=== PATIENT | male | born 1965 | race Caucasian/White ===

== ENCOUNTER 2020-05-05 07:34 | Inpatient (IN) | payer MEDICARE, MEDICAID ==
[~2020-05-05] VITALS: Ht 170.2 cm; Wt 64.0 kg
[2020-05-05 08:36] LABS: CHLORIDE 102 mEq/L (98-107)
[2020-05-05 08:43] LABS: BASOPHILS % 0.7 % (0.0-2.0); EOSINOPHILS % 4.3 % (0.0-5.0); HEMATOCRIT. 31.8 % (42.0-52.0); HEMOGLOBIN. 10.9 g/dL (14.0-18.0); LYMPHOCYTES % 9.2 % (20.0-50.0); MEAN CORPUSCULAR HEMOGLOBIN 31.6 pg (28.0-32.0); MEAN CORPUSCULAR VOLUME 92.6 fL (80.0-94.0); MEAN PLATELET VOLUME 10.1 fl (7.4-10.4); NEUTROPHILS % 76.8 % (40.0-76.0); PLATELET 109 x1000/uL (130-400); RED BLOOD CELL COUNT 3.44 mill/uL (4.7-6.1); RED CELL DISTRIBUTION WIDTH 15.7 % (11.6-14.6)
[2020-05-05 09:11] LABS: INR 1.2; PARTIAL THROMBOPLASTIN TIME 28.2 sec (23.4-31.0); PROTHROMBIN TIME 12.7 sec (9.6-11.0)
[2020-05-05] MEDS ORDERED: AMLODIPINE 5MG TABLET PO ONE (09:30)
[2020-05-05] MEDS ORDERED: CARVEDILOL 12.5MG TABLET PO ONE (09:30)
[2020-05-05] MEDS ORDERED: ROPIVACAINE HCL 10MG/ML 20 ML VIAL EPI ONE (12:20)
[2020-05-05] MEDS ORDERED: BACITRACIN 15GM TUBE TOP ONE (12:27)
[2020-05-05] MEDS ORDERED: LIDOCAINE HCL 1% 20ML VIAL (Pyxis) INJ ONE (12:27)
[2020-05-05] MEDS ORDERED: THROMBIN (BOVINE) 5000 UNITS/VIAL TOP ONE ×2 (12:27→14:05)
[2020-05-05] MEDS ORDERED: ONDANSETRON HCL 4MG/2ML INJ ONE (12:28)
[2020-05-05] MEDS ORDERED: GLYCOPYRROLATE 0.2 MG/ML 2ML VIAL ONE (12:28)
[2020-05-05] MEDS ORDERED: PROPOFOL 200MG/20ML VIAL IV ONE (12:28)
[2020-05-05] MEDS ORDERED: SUCCINYLCHOLINE CHLORIDE 200MG/10ML IV ONE (12:28)
[2020-05-05] MEDS ORDERED: BACITRACIN 50,000 UNITS/VIAL ONE (12:28)
[2020-05-05] MEDS ORDERED: BUPIVACAINE HCL/PF 0.5% (5MG/ML) 10ML ONE (12:28)
[2020-05-05] MEDS ORDERED: HEPARIN SODIUM 1,000 UNIT/1ML VIAL IV ONE ×4 (12:28→13:50)
[2020-05-05] MEDS ORDERED: MIDAZOLAM HCL 2 MG/2 ML VIAL ONE (12:28)
[2020-05-05] MEDS ORDERED: FENTANYL CITRATE/PF 50MCG/ML 2ML VIAL ONE (12:28)
[2020-05-05] MEDS ORDERED: NORMAL SALINE 0.9% 10 ML SYR ONE (12:28)
[2020-05-05] MEDS ORDERED: METOCLOPRAMIDE HCL 10MG/2ML VIAL ONE (12:28)
[2020-05-05] MEDS ORDERED: SODIUM CHLORIDE 0.9% 1,000 ML IV ONE (13:02)
[2020-05-05] MEDS ORDERED: ALBUMIN HUMAN 12.5G/250ML (5%) IV ONE (13:06)
[2020-05-05] MEDS ORDERED: ONDANSETRON HCL 4MG/2ML INJ IV PRN ×3 (13:15→16:15)
[2020-05-05] MEDS ORDERED: MEPERIDINE HCL/PF 25MG/ML CPJ IV PRN (13:15)
[2020-05-05] MEDS ORDERED: MORPHINE SULFATE 2 MG/ML CPJ (NOT FOR IM USE) IV PRN ×2 (13:15→16:15)
[2020-05-05] MEDS ORDERED: HYDROMORPHONE HCL/PF 2MG/ML CPJ IV PRN ×2 (13:15→16:15)
[2020-05-05] MEDS ORDERED: SKIN ADHESIVE 0.7 GM EA TOP ONE (14:13)
[2020-05-05] MEDS ORDERED: HYDROCODONE/ACETAMINOPHEN 5/325MG TABLET PO PRN (15:45)
[2020-05-05] MEDS ORDERED: LORAZEPAM 0.5MG TABLET PO PRN (15:45)
[2020-05-05] MEDS ORDERED: ACETAMINOPHEN 325MG TABLET PO PRN (15:45)
[2020-05-05] MEDS ORDERED: DOCUSATE SODIUM 100MG CAPSULE PO PRN (15:45)
[2020-05-05] MEDS ORDERED: GUAIFENESIN 200MG/10ML SUGAR FREE UDC PO PRN (15:45)
[2020-05-05] MEDS ORDERED: IPRATROPIUM/ALBUTEROL 0.5-3(2.5)MG/3ML NEB HHN PRN (15:45)
[2020-05-05] MEDS ORDERED: CLONIDINE 0.1MG TABLET PO PRN ×2 (15:45→23:15)
[2020-05-05 16:00] VITALS: BP 133/71
[2020-05-05 18:01] VITALS: BP 108/66
[2020-05-05 20:00] VITALS: BP 160/58
[2020-05-05] MEDS ORDERED: ASCO500C18 PO (20:11)
[2020-05-05] MEDS ORDERED: CLON0.1T PO (20:11)
[2020-05-05] MEDS ORDERED: CARV12.545 PO (20:11)
[2020-05-05] MEDS ORDERED: SEVE800T8 PO (20:11)
[2020-05-05] MEDS ORDERED: FOLI0.8T23 PO (20:11)
[2020-05-05] MEDS ORDERED: OMEP20TA2 PO (20:11)
[2020-05-05] MEDS ORDERED: AMLO5TAB88 PO (20:11)
[2020-05-05] MEDS ORDERED: GABA-529 PO (20:11)
[2020-05-05] MEDS ORDERED: CLON1PAT12 TD (20:11)
[2020-05-05] MEDS ORDERED: CLOP75TA33 PO (20:11)
[2020-05-05] MEDS ORDERED: MORP30TA66 PO (20:11)
[2020-05-05] MEDS ORDERED: DOCU-138 PO (20:11)
[2020-05-05] MEDS ORDERED: OXYC-100 PO (20:11)
[2020-05-05 22:00] VITALS: BP 140/45
[2020-05-06] VITALS: BP 148/40
[2020-05-06 04:00] VITALS: BP 150/53
[2020-05-06 07:51] LABS: BASOPHILS % 0.9 % (0.0-2.0); EOSINOPHILS % 2.8 % (0.0-5.0); HEMATOCRIT. 26.8 % (42.0-52.0); HEMOGLOBIN. 9.2 g/dL (14.0-18.0); LYMPHOCYTES % 7.9 % (20.0-50.0); MEAN CORPUSCULAR HEMOGLOBIN 31.3 pg (28.0-32.0); MEAN CORPUSCULAR VOLUME 91.5 fL (80.0-94.0); MEAN PLATELET VOLUME 9.9 fl (7.4-10.4); MONOCYTES % 7.7 % (2.0-8.0); NEUTROPHILS % 80.7 % (40.0-76.0); PLATELET 103 x1000/uL (130-400); RED BLOOD CELL COUNT 2.93 mill/uL (4.7-6.1); RED CELL DISTRIBUTION WIDTH 15.6 % (11.6-14.6)
[2020-05-06 08:00] VITALS: BP 124/69
[2020-05-06] MEDS ORDERED: ENOXAPARIN 40MG/0.4ML SYR SUBCUT SCH (09:00)
[2020-05-06 12:00] VITALS: BP 118/63
[2020-05-06] MEDS ORDERED: ONDANSETRON HCL 4MG/2ML INJ IV PRN (12:45)
[2020-05-06] MEDS ORDERED: GUAIFENESIN 200MG/10ML SUGAR FREE UDC PO PRN (13:00)
[2020-05-06] MEDS ORDERED: DOCUSATE SODIUM 100MG CAPSULE PO PRN (13:00)
[2020-05-06] MEDS ORDERED: ACETAMINOPHEN 325MG TABLET PO PRN (13:00)
[2020-05-06] MEDS ORDERED: CLONIDINE 0.1MG TABLET PO PRN (13:00)
[2020-05-06] MEDS ORDERED: IPRATROPIUM/ALBUTEROL 0.5-3(2.5)MG/3ML NEB HHN PRN (13:00)
[2020-05-06] MEDS ORDERED: LORAZEPAM 0.5MG TABLET PO PRN (13:00)
[2020-05-06] MEDS: HYDROCODONE/ACETAMINOPHEN 5/325MG TABLET PO PRN (13:37)
[2020-05-06 16:00] VITALS: BP 155/66
[2020-05-06] MEDS ORDERED: DEXTROSE 50% WATER 50ML SYRINGE IV PRN (16:15)
[2020-05-06] MEDS: INSULIN LISPRO 100 UNITS/ML SUBCUT SCH ×2 (17:40→21:00)
[2020-05-06] MEDS: CLONIDINE 0.1MG TABLET PO SCH (17:46)
[2020-05-06] MEDS: GABAPENTIN 100MG CAPSULE PO SCH (17:46)
[2020-05-06] MEDS: FOLIC ACID/VITAMIN B COMP W-C TABLET PO SCH (17:46)
[2020-05-06] MEDS: AMLODIPINE 5MG TABLET PO SCH (17:47)
[2020-05-06] MEDS: BLOOD SUGAR DIAGNOSTIC STRIP TEST SCH ×2 (17:47→21:17)
[2020-05-06 20:00] VITALS: BP 165/82
[2020-05-06] MEDS: CARVEDILOL 12.5MG TABLET PO SCH (20:45)
[2020-05-07] VITALS: BP 155/66
[2020-05-07] MEDS: HYDROCODONE/ACETAMINOPHEN 5/325MG TABLET PO PRN (00:24)
[2020-05-07 04:00] VITALS: BP 149/66
[2020-05-07] MEDS: OMEPRAZOLE 20MG CAPSULE EXTENDED RELEASE PO SCH (06:22)
[2020-05-07] MEDS: BLOOD SUGAR DIAGNOSTIC STRIP TEST SCH ×4 (06:22→21:00)
[2020-05-07] MEDS: INSULIN LISPRO 100 UNITS/ML SUBCUT SCH ×4 (06:22→21:00)
[2020-05-07 06:45] LABS: HEMATOCRIT. 25.7 % (42.0-52.0); HEMOGLOBIN. 8.8 g/dL (14.0-18.0); MEAN CORPUSCULAR HEMOGLOBIN 31.4 pg (28.0-32.0); MEAN CORPUSCULAR VOLUME 91.9 fL (80.0-94.0); MEAN PLATELET VOLUME 10.3 fl (7.4-10.4); PLATELET 89 x1000/uL (130-400); RED CELL DISTRIBUTION WIDTH 15.8 % (11.6-14.6)
[2020-05-07 08:00] VITALS: BP 125/48
[2020-05-07] MEDS: FOLIC ACID/VITAMIN B COMP W-C TABLET PO SCH (10:01)
[2020-05-07] MEDS: AMLODIPINE 5MG TABLET PO SCH (10:02)
[2020-05-07] MEDS: CARVEDILOL 12.5MG TABLET PO SCH ×2 (10:03→22:06)
[2020-05-07] MEDS: GABAPENTIN 100MG CAPSULE PO SCH ×3 (10:03→17:58)
[2020-05-07] MEDS: CLONIDINE 0.1MG TABLET PO SCH (10:03)
[2020-05-07 12:00] VITALS: BP 155/40
[2020-05-07] MEDS ORDERED: SODIUM BICARBONATE 4% (2.4MEQ) 5ML VIAL IV ONE (12:50)
[2020-05-07] MEDS ORDERED: LIDOCAINE HCL 1% 20ML VIAL (Pyxis) INJ ONE (12:50)
[2020-05-07] MEDS ORDERED: IOHEXOL-350 100 ML BOTTLE ONE (13:56)
[2020-05-07 16:00] VITALS: BP 110/41
[2020-05-07 20:00] VITALS: BP 120/29
[2020-05-07] MEDS ORDERED: EPOETIN ALFA 10000UNITS/ML VIAL SUBCUT SCH (21:00)
[2020-05-08] VITALS: BP 119/45
[2020-05-08 04:00] VITALS: BP 100/34
[2020-05-08] MEDS: OMEPRAZOLE 20MG CAPSULE EXTENDED RELEASE PO SCH (06:59)
[2020-05-08] MEDS: BLOOD SUGAR DIAGNOSTIC STRIP TEST SCH ×3 (06:59→17:10)
[2020-05-08] MEDS: INSULIN LISPRO 100 UNITS/ML SUBCUT SCH ×3 (07:00→17:17)
[2020-05-08 07:01] LABS: EOSINOPHILS % 3.2 % (0.0-5.0); HEMATOCRIT. 25.3 % (42.0-52.0); HEMOGLOBIN. 8.7 g/dL (14.0-18.0); MEAN CORPUSCULAR HEMOGLOBIN 31.4 pg (28.0-32.0); MEAN CORPUSCULAR VOLUME 91.3 fL (80.0-94.0); MEAN PLATELET VOLUME 9.6 fl (7.4-10.4); MONOCYTES % 7.4 % (2.0-8.0); NEUTROPHILS % 79.4 % (40.0-76.0); PLATELET 89 x1000/uL (130-400); RED BLOOD CELL COUNT 2.78 mill/uL (4.7-6.1); RED CELL DISTRIBUTION WIDTH 15.7 % (11.6-14.6)
[2020-05-08 08:00] VITALS: BP 120/25
[2020-05-08] MEDS: AMLODIPINE 5MG TABLET PO SCH (09:00)
[2020-05-08] MEDS: CARVEDILOL 12.5MG TABLET PO SCH (09:00)
[2020-05-08] MEDS: CLONIDINE 0.1MG TABLET PO SCH (09:00)
[2020-05-08] MEDS: FOLIC ACID/VITAMIN B COMP W-C TABLET PO SCH (09:18)
[2020-05-08] MEDS: GABAPENTIN 100MG CAPSULE PO SCH ×3 (09:18→17:00)
[2020-05-08 11:55] VITALS: BP 128/32
[2020-05-08 15:35] VITALS: BP 109/27
[2020-05-08 16:00] VITALS: BP 109/27
== END 2020-05-08 18:34 | disposition home health service (06) | DRG 252 ==
LOC: ER 07:34 → 8WST 09:58 → ENRESERV 11:39 → ER 12:04
PROVIDERS: ADMIT Internal Medicine; ATTEND Internal Medicine
PROC: 03L80ZZ Occlusion of Left Brachial Artery, Open Approach (ICD-10-PCS; principal; 2020-05-05)
PROC: 03PY0KZ Removal of Nonautologous Tissue Substitute from Upper Artery, Open Approach (ICD-10-PCS; 2020-05-05)
PROC: 03180AD Bypass Left Brachial Artery to Upper Arm Vein with Autologous Arterial Tissue, Open Approach (ICD-10-PCS; 2020-05-05)
PROC: 02HV33Z Insertion of Infusion Device into Superior Vena Cava, Percutaneous Approach (ICD-10-PCS; 2020-05-07)
PROC: B518ZZA Fluoroscopy of Superior Vena Cava, Guidance (ICD-10-PCS; 2020-05-07)
PROC: B548ZZA Ultrasonography of Superior Vena Cava, Guidance (ICD-10-PCS; 2020-05-07)
PROC: 5A1D70Z Performance of Urinary Filtration, Intermittent, Less than 6 Hours Per Day (ICD-10-PCS; 2020-05-07)
DX: T82.838A Hemorrhage due to vascular prosthetic devices, implants and grafts, initial encounter (principal); N18.6 End stage renal disease; E11.52 Type 2 diabetes mellitus with diabetic peripheral angiopathy with gangrene; I50.30 Unspecified diastolic (congestive) heart failure; I13.2 Hypertensive heart and chronic kidney disease with heart failure and with stage 5 chronic kidney disease, or end stage renal disease; F11.20 Opioid dependence, uncomplicated; I96 Gangrene, not elsewhere classified; D62 Acute posthemorrhagic anemia; I50.32 Chronic diastolic (congestive) heart failure; D69.6 Thrombocytopenia, unspecified; E78.5 Hyperlipidemia, unspecified; G89.4 Chronic pain syndrome; D72.810 Lymphocytopenia; D72.0 Genetic anomalies of leukocytes; E11.22 Type 2 diabetes mellitus with diabetic chronic kidney disease; Z20.828 Contact with and (suspected) exposure to other viral communicable diseases; Y84.1 Kidney dialysis as the cause of abnormal reaction of the patient, or of later complication, without mention of misadventure at the time of the procedure; Z79.899 Other long term (current) drug therapy; Z79.84 Long term (current) use of oral hypoglycemic drugs; Z74.01 Bed confinement status; Z99.2 Dependence on renal dialysis; Y92.89 Other specified places as the place of occurrence of the external cause
CPT/HCPCS: 36415; 36573; 75635; 76937; 80048; 80053; 80061; 82728; 82962; 83036; 83540; 83550; 85025; 86850; 86900; 88300; 93005; 99285; A4565; C1725; C1768; J0330; J0885; J1170; J1644; J2175; J2250; J2405; J2704; J2765; J2795; J3010; J3490; P9041; Q9967; U0003-CS

== ENCOUNTER 2021-07-30 09:12 | Inpatient (IN) | payer MEDICARE, MEDICAID ==
[~2021-07-30] VITALS: Ht 165.1 cm; Wt 55.4 kg
[~2021-07-30 09:12] MED LIST: AMLO5TAB88 PO; ASCO500C18 PO; CARV12.545 PO; CLON0.1T PO; CLON1PAT12 TD; CLOP75TA33 PO; DOCU-138 PO; FOLI0.8T23 PO; GABA-529 PO; MORP30TA66 PO; OMEP20TA2 PO; OXYC-100 PO; SEVE800T8 PO
[2021-07-30] MEDS ORDERED: LORAZEPAM 2MG/ML CPJ IV STA (09:38)
[2021-07-30 10:06] LABS: CHLORIDE 102 mEq/L (98-107); HEMATOCRIT. 40.5 % (42.0-52.0); HEMOGLOBIN. 13.8 g/dL (14.0-18.0); MEAN CORPUSCULAR VOLUME 93.9 fL (80.0-94.0); MEAN PLATELET VOLUME 10.9 fl (7.4-10.4); PLATELET 97 x1000/uL (130-400); RED BLOOD CELL COUNT 4.31 mill/uL (4.7-6.1); RED CELL DISTRIBUTION WIDTH 14.5 % (11.6-14.6)
[2021-07-30] MEDS ORDERED: LORAZEPAM 2MG/ML CPJ IM STA (10:09)
[2021-07-30 10:12] LABS: ETHANOL BLOOD < 10 mg/dL
[2021-07-30] MEDS ORDERED: OLANZAPINE 10 MG/VIAL IM ONE (10:15)
[2021-07-30] MEDS ORDERED: PIPERACILLIN/TAZ 3.375G PREMIX 50 ML IV ONE (12:00)
[2021-07-30] MEDS ORDERED: VANCOMYCIN 1 G PREMIX 200 ML IV ONE (12:00)
[2021-07-30 12:27] LABS: PLATELET ESTIMATE SLIGHTLY DECREASED
[2021-07-30] MEDS ORDERED: ONDANSETRON HCL 4MG/2ML INJ IV PRN (13:45)
[2021-07-30] MEDS ORDERED: ACETAMINOPHEN 325MG TABLET PO PRN (13:45)
[2021-07-30] MEDS ORDERED: IPRATROPIUM/ALBUTEROL 0.5-3(2.5)MG/3ML NEB HHN PRN (13:45)
[2021-07-30] MEDS ORDERED: CEFTRIAXONE 1 G PREMIX 50 ML IV NR (13:45)
[2021-07-30] MEDS ORDERED: AZITHROMYCIN 500 MG in DEXT 5% WATER 250 ML IV SCH (14:00)
[2021-07-30] MEDS: DIPHENHYDRAMINE 50MG/ML VIAL IV PRN (14:03)
[2021-07-30] MEDS: HALOPERIDOL LACTATE 5MG/ML VIAL IM PRN ×2 (14:03→21:54)
[2021-07-30] MEDS ORDERED: HYDRALAZINE 20MG/ML VIAL IV PRN (16:45)
[2021-07-30 18:20] VITALS: BP 146/44
[2021-07-30 20:00] VITALS: BP 119/77
[2021-07-30] MEDS: AZITHROMYCIN 500 MG in DEXT 5% WATER 250 ML IV SCH (23:20)
[2021-07-31] VITALS: BP 137/46
[2021-07-31 04:00] VITALS: BP 130/49
[2021-07-31] MEDS: BLOOD SUGAR DIAGNOSTIC STRIP TEST SCH ×4 (05:54→20:28)
[2021-07-31] MEDS: INSULIN LISPRO 100 UNITS/ML SUBCUT SCH ×4 (05:55→20:50)
[2021-07-31] MEDS ORDERED: DEXTROSE 50% WATER 50ML SYRINGE IV PRN (06:00)
[2021-07-31 06:24] LABS: CHLORIDE 102 mEq/L (98-107)
[2021-07-31 06:32] LABS: HDL CHOLESTEROL 44 mg/dL (40-59); LDL CHOLESTEROL 77 mg/dL (5-100)
[2021-07-31 06:47] LABS: BASOPHILS % 0.6 % (0.0-2.0); EOSINOPHILS % 2.4 % (0.0-5.0); HEMOGLOBIN. 12.5 g/dL (14.0-18.0); LYMPHOCYTES % 7.3 % (20.0-50.0); MEAN CORPUSCULAR HEMOGLOBIN 31.6 pg (28.0-32.0); MEAN CORPUSCULAR VOLUME 93.3 fL (80.0-94.0); MEAN PLATELET VOLUME 11.3 fl (7.4-10.4); MONOCYTES % 7.3 % (2.0-8.0); NEUTROPHILS % 82.4 % (40.0-76.0); PLATELET 80 x1000/uL (130-400); RED BLOOD CELL COUNT 3.96 mill/uL (4.7-6.1); RED CELL DISTRIBUTION WIDTH 14.3 % (11.6-14.6)
[2021-07-31 08:00] VITALS: BP 138/42
[2021-07-31] MEDS: CEFTRIAXONE 1,000 MG in DEXTROSE 5% WATER 50 ML IV SCH (09:48)
[2021-07-31 12:00] VITALS: BP 144/46
[2021-07-31 16:00] VITALS: BP 107/53
[2021-07-31 20:00] VITALS: BP 135/44
[2021-07-31] MEDS: AZITHROMYCIN 500 MG in DEXT 5% WATER 250 ML IV SCH (20:49)
[2021-07-31] MEDS: HALOPERIDOL LACTATE 5MG/ML VIAL IM PRN (21:55)
[2021-07-31 22:22] LABS: HEPATITIS B SURFACE ANTIGEN NEGATIVE
[2021-08-01] VITALS: BP 100/43
[2021-08-01 04:00] VITALS: BP_SYST 158; BP_DIAS 52; BP_DIAS 82
[2021-08-01] MEDS: INSULIN LISPRO 100 UNITS/ML SUBCUT SCH ×4 (06:26→20:01)
[2021-08-01] MEDS: BLOOD SUGAR DIAGNOSTIC STRIP TEST SCH ×4 (06:26→20:01)
[2021-08-01 08:00] VITALS: BP 178/50
[2021-08-01] MEDS: CLONIDINE 0.1MG TABLET PO PRN (08:40)
[2021-08-01] MEDS: CEFTRIAXONE 1,000 MG in DEXTROSE 5% WATER 50 ML IV SCH (08:40)
[2021-08-01 09:42] LABS: BASOPHILS % 0.7 % (0.0-2.0); HEMATOCRIT. 36.6 % (42.0-52.0); HEMOGLOBIN. 12.5 g/dL (14.0-18.0); LYMPHOCYTES % 10.1 % (20.0-50.0); MEAN CORPUSCULAR HEMOGLOBIN 31.8 pg (28.0-32.0); MEAN CORPUSCULAR VOLUME 93.2 fL (80.0-94.0); MEAN PLATELET VOLUME 10.8 fl (7.4-10.4); MONOCYTES % 8.1 % (2.0-8.0); NEUTROPHILS % 78.1 % (40.0-76.0); PLATELET 77 x1000/uL (130-400); RED BLOOD CELL COUNT 3.93 mill/uL (4.7-6.1); RED CELL DISTRIBUTION WIDTH 14.4 % (11.6-14.6)
[2021-08-01] MEDS: AMLODIPINE 10MG TABLET PO SCH (10:30)
[2021-08-01 12:00] VITALS: BP 135/36
[2021-08-01 16:00] VITALS: BP 126/32
[2021-08-01] MEDS ORDERED: HALOPERIDOL LACTATE 5MG/ML VIAL IM PRN (16:45)
[2021-08-01 19:29] LABS: FOLIC ACID (FOLATE) SERUM >20 ng/mL ng/mL (>5.38)
[2021-08-01 19:40] LABS: VITAMIN B12 SERUM 1400 pg/mL (211-911)
[2021-08-01 20:00] VITALS: BP 127/35
[2021-08-02] VITALS: BP 119/31
[2021-08-02 04:00] VITALS: BP 123/54
[2021-08-02] MEDS: BLOOD SUGAR DIAGNOSTIC STRIP TEST SCH ×4 (05:50→21:57)
[2021-08-02] MEDS: INSULIN LISPRO 100 UNITS/ML SUBCUT SCH ×4 (06:14→21:00)
[2021-08-02 07:36] LABS: T4 FREE 0.96 ng/dL (0.76-1.46)
[2021-08-02 08:00] VITALS: BP 149/47
[2021-08-02] MEDS: AMLODIPINE 10MG TABLET PO SCH (09:00)
[2021-08-02 12:00] VITALS: BP 148/49
[2021-08-02 16:00] VITALS: BP 132/52
[2021-08-02 20:00] VITALS: BP 141/75
[2021-08-02] MEDS ORDERED: AZITHROMYCIN 500 MG TABLET PO SCH (21:00)
[2021-08-03] VITALS: BP 160/68
[2021-08-03 04:00] VITALS: BP 180/69
[2021-08-03] MEDS: CLONIDINE 0.1MG TABLET PO PRN (06:07)
[2021-08-03] MEDS: BLOOD SUGAR DIAGNOSTIC STRIP TEST SCH ×4 (06:24→21:43)
[2021-08-03] MEDS: INSULIN LISPRO 100 UNITS/ML SUBCUT SCH ×4 (06:24→21:51)
[2021-08-03 08:00] VITALS: BP 129/55
[2021-08-03] MEDS: AMLODIPINE 10MG TABLET PO SCH (09:12)
[2021-08-03 12:00] VITALS: BP 106/48
[2021-08-03 16:00] VITALS: BP 162/23
[2021-08-03 20:00] VITALS: BP 92/65
[2021-08-04] VITALS: BP 172/51
[2021-08-04] MEDS: CLONIDINE 0.1MG TABLET PO PRN (00:45)
[2021-08-04] MEDS: DIPHENHYDRAMINE 50MG/ML VIAL IV PRN (00:45)
[2021-08-04 04:00] VITALS: BP 154/71
[2021-08-04] MEDS: BLOOD SUGAR DIAGNOSTIC STRIP TEST SCH ×4 (06:12→21:36)
[2021-08-04] MEDS: INSULIN LISPRO 100 UNITS/ML SUBCUT SCH ×4 (06:13→20:24)
[2021-08-04 07:08] LABS: INR 1.2; PROTHROMBIN TIME 12.6 sec (9.6-11.0)
[2021-08-04 07:28] LABS: BASOPHILS % 0.8 % (0.0-2.0); EOSINOPHILS % 3.8 % (0.0-5.0); HEMATOCRIT. 38.8 % (42.0-52.0); HEMOGLOBIN. 12.9 g/dL (14.0-18.0); LYMPHOCYTES % 9.4 % (20.0-50.0); MEAN CORPUSCULAR HEMOGLOBIN 31.4 pg (28.0-32.0); MEAN CORPUSCULAR VOLUME 94.8 fL (80.0-94.0); MEAN PLATELET VOLUME 10.3 fl (7.4-10.4); MONOCYTES % 8.4 % (2.0-8.0); NEUTROPHILS % 77.6 % (40.0-76.0); PLATELET 94 x1000/uL (130-400); RED CELL DISTRIBUTION WIDTH 14.6 % (11.6-14.6)
[2021-08-04 07:34] LABS: PHOSPHORUS 7.4 mg/dL (2.5-4.9)
[2021-08-04 08:00] VITALS: BP 129/40
[2021-08-04] MEDS: AMLODIPINE 10MG TABLET PO SCH (09:35)
[2021-08-04] MEDS ORDERED: DIPHENHYDRAMINE HCL/ZINC ACET 28 GM CREAM TOP PRN (10:45)
[2021-08-04 12:00] VITALS: BP 162/73
[2021-08-04 14:49] LABS: HEPATITIS B SURFACE ANTIGEN NEGATIVE
[2021-08-04 16:30] VITALS: BP 158/65
[2021-08-04 20:00] VITALS: BP 154/34
[2021-08-05] VITALS: BP 172/40
[2021-08-05 04:00] VITALS: BP 169/75
[2021-08-05] MEDS: BLOOD SUGAR DIAGNOSTIC STRIP TEST SCH ×3 (05:47→16:26)
[2021-08-05] MEDS: INSULIN LISPRO 100 UNITS/ML SUBCUT SCH ×3 (05:48→16:26)
[2021-08-05 08:00] VITALS: BP 115/40
[2021-08-05] MEDS: AMLODIPINE 10MG TABLET PO SCH (09:16)
[2021-08-05 12:00] VITALS: BP 108/30
[2021-08-05] MEDS ORDERED: AMLO10TA80 PO (15:28)
[2021-08-05 15:37] VITALS: BP 159/72
[2021-08-05 16:00] VITALS: BP 159/72
== END 2021-08-05 18:46 | disposition home health service (06) | DRG 91 ==
LOC: ER 09:30 → 7EST 14:25 → ENRESERV 15:39
PROVIDERS: ADMIT Internal Medicine; ATTEND Internal Medicine
PROC: 5A1D70Z Performance of Urinary Filtration, Intermittent, Less than 6 Hours Per Day (ICD-10-PCS; principal; 2021-08-02)
PROC: 5A1D70Z Performance of Urinary Filtration, Intermittent, Less than 6 Hours Per Day (ICD-10-PCS; 2021-08-05)
DX: G92 Toxic encephalopathy (principal); N18.6 End stage renal disease; I13.2 Hypertensive heart and chronic kidney disease with heart failure and with stage 5 chronic kidney disease, or end stage renal disease; I48.20 Chronic atrial fibrillation, unspecified; F11.20 Opioid dependence, uncomplicated; E46 Unspecified protein-calorie malnutrition; I50.20 Unspecified systolic (congestive) heart failure; I42.9 Cardiomyopathy, unspecified; E11.22 Type 2 diabetes mellitus with diabetic chronic kidney disease; E78.5 Hyperlipidemia, unspecified; G89.4 Chronic pain syndrome; Z20.822 Contact with and (suspected) exposure to COVID-19; E78.00 Pure hypercholesterolemia, unspecified; R26.89 Other abnormalities of gait and mobility; I35.0 Nonrheumatic aortic (valve) stenosis; E11.51 Type 2 diabetes mellitus with diabetic peripheral angiopathy without gangrene; Z78.1 Physical restraint status; Z79.4 Long term (current) use of insulin; Z99.2 Dependence on renal dialysis; Z86.73 Personal history of transient ischemic attack (TIA), and cerebral infarction without residual deficits; Z79.899 Other long term (current) drug therapy; Z68.20 Body mass index [BMI] 20.0-20.9, adult
CPT/HCPCS: 36415; 70551; 71045; 80048; 80053; 80061; 80320; 82140; 82607; 82746; 82962; 83036; 83605; 83735; 84100; 84439; 84443; 84481; 84484; 85025; 86705; 86709; 86803; 87340; 87426; 93005; 93306; 93970; 99285; J0456; J0696; J1200; J1630; J1815; J2060; J2405; J2543; J3370; J3490; J7040; J7060; G0480